=== PATIENT | female | born 1955 | race Caucasian/White ===

== ENCOUNTER → 2018-06-12 | Outpatient (CLI) | payer OTHER ==
[~2018-06-12] MED LIST: ALENDRONATE SOD70 MG PO; ASPIRIN325 PO; CELEXA20 MG PO; CELEXA40 MG; FLEXERIL PO; HYDROCODON-ACE1 EAC7 PO; HYDROCODONE-AP1 EAC6 PO; HYDROXYZINE HCL25 M2 PO; IBUPROFEN 600600 M1 PO; MEDROLDOSEPACK PO; NORCO 5-325 TA1 EACH PO; OXYCODONE HCL 55 MG PO; PRILOSEC40 MG PO; SYNTHROID100 MC1 PO; TIROSINT88 MCG; TRIAMCINOLONE A80 G2 TOP; VITAMIN D 5050000 I1; VITAMIN D2000 UNIT PO
== END ==
LOC: M.MRI 13:59
DX: S43.402A Unspecified sprain of left shoulder joint, initial encounter (principal); M75.122 Complete rotator cuff tear or rupture of left shoulder, not specified as traumatic; M19.012 Primary osteoarthritis, left shoulder; M75.02 Adhesive capsulitis of left shoulder; R60.0 Localized edema; X58.XXXA Exposure to other specified factors, initial encounter; Y93.89 Activity, other specified; Y92.89 Other specified places as the place of occurrence of the external cause; Y99.8 Other external cause status

== ENCOUNTER 2018-07-04 14:56 | Emergency (ER) | payer OTHER ==
[~2018-07-04] VITALS: Ht 162.6 cm; Wt 56.7 kg
[~2018-07-04 14:56] MED LIST changes: -ASPIRIN325 PO; -HYDROCODON-ACE1 EAC7 PO; -HYDROXYZINE HCL25 M2 PO; -MEDROLDOSEPACK PO; -OXYCODONE HCL 55 MG PO; -SYNTHROID100 MC1 PO; -TRIAMCINOLONE A80 G2 TOP
[2018-07-04] MEDS ORDERED: SYNTHROID100 MC1 PO (15:08)
[2018-07-04] MEDS ORDERED: HYDROXYZINE HCL25 M2 PO (16:00)
[2018-07-04] MEDS ORDERED: TRIAMCINOLONE A80 G2 TOP (16:00)
[2018-07-04] MEDS ORDERED: MEDROLDOSEPACK PO (16:00)
[2018-07-04 16:09] VITALS: BP 105/76
[2018-07-06] MEDS ORDERED: HYDROCODON-ACE1 EAC7 PO (12:45)
[2018-07-06] MEDS ORDERED: OXYCODONE HCL 55 MG PO (12:46)
[2018-07-06] MEDS ORDERED: ASPIRIN325 PO (12:53)
== END 2018-07-04 16:10 | disposition home or self-care (01) ==
LOC: M.ERS 14:56
DX: L23.7 Allergic contact dermatitis due to plants, except food (principal); F41.9 Anxiety disorder, unspecified

== ENCOUNTER → 2018-07-06 | Day surgery (SDC) | payer OTHER ==
[~2018-07-06] MED LIST changes: +ASPIRIN325 PO; +HYDROCODON-ACE1 EAC7 PO; +HYDROXYZINE HCL25 M2 PO; +MEDROLDOSEPACK PO; +OXYCODONE HCL 55 MG PO; +SYNTHROID100 MC1 PO; +TRIAMCINOLONE A80 G2 TOP
[2018-07-06 09:31] LABS: HEMATOCRIT 44.7 % (37.0-47.0); HEMOGLOBIN 14.4 gm/dL (12.0-15.0); MCH 28.5 pg (26.0-34.0); MCHC 32.2 g/dL (28.0-37.0); MCV 88.4 fL (80.0-100.0); MPV 8.3 fl. (7.2-11.1); RBC 5.06 mil/uL (4.20-5.00); RDW-CV 15.2 % (10.5-14.5); WBC 18.8 thou/uL (4.0-11.0)
[2018-07-06 09:36] LABS: CREATININE 0.9 mg/dL (0.6-1.3); POTASSIUM 3.4 mmol/L (3.5-5.1)
[2018-07-06 09:41] LABS: ALBUMIN 3.3 g/dL (3.4-5.0); TOTAL BILIRUBIN 0.3 mg/dL (<0.1-1.0); TOTAL PROTEIN 6.8 g/dL (6.4-8.2)
--- NOTE | 2018-07-06 13:12 | EKG ---
[place] [address] ELECTROCARDIOGRAM REPORT Name: MELI PAREKH Room: [facility]#: [id number] Admission: 07/06/18 Attend Phys: Tapan Damon DO Discharge: Date of : 59 Report #: [id number] THIS REPORT FOR: //name// [facility] Test Date: 2018-07-06 Test Time: 09:24:43 Pat Name: MELI PAREKH Department: Room: Gender: F Inspector Aligning: ESME : 1955 Requested By: Tapan Damon Order Number: [id number] Krystal MD: Tapan Zimmerman Measurements Intervals [place] Rate: 77 P: 67 IA: 105 QRS: 56 QRSD: 89 T: 41 QT: 410 QTc: 465 Interpretive Statements Sinus rhythm Short IA interval Compared to ECG 05/20/2017 21:46:45 No significant changes Electronically Signed On 07-06-2018 13:12:03 CDT by Tapan Zimmerman [email or web address] <ELECTRONICALLY SIGNED> By: Tapan Zimmerman MD, [facility] 07/06/18 1312 D: 09/923 3 Tapan Zimmerman MD, FACC /EPI
--- NOTE | 2018-07-24 15:25 | OP ---
[address] [address] OPERATIVE REPORT Name: MELI PAREKH Room: [facility]#: [id number] Admission: 07/06/18 Attend Phys: Tapan Damon DO Discharge: Date of : 59 Report #: [id number] THIS REPORT FOR: //name// CC: Ebenezer Damon DATE OF SERVICE: 07/06/2018 PREOPERATIVE DIAGNOSES: Degenerative labral tear of the left shoulder with adhesive capsulitis. POSTOPERATIVE DIAGNOSES: 1. Left shoulder adhesive capsulitis. 2. Impingement syndrome. 3. Degenerative labral tear. PROCEDURE: 1. Left shoulder arthroscopy. 2. Biceps tenotomy. 3. Debridement of labral tear. 4. Subacromial decompression. SURGEON: Tapan Damon DO. SUPERVISOR PROCESS TESTING: Haja Pimentel DO. ESTIMATED BLOOD LOSS: 10 mL. ANTIBIOTICS: Ancef 2 grams IV preoperatively. COMPLICATIONS: None. DRAINS: None. SPECIMEN REMOVED: None. ANESTHESIA: General with interscalene block. CONDITION OF PATIENT: Stable to PACU. INDICATIONS: The patient is a pleasant 63-year-old female seen in my clinic regarding left shoulder pain that she has had for quite some time. She unfortunately failed conservative treatment including anti-inflammatory medications and activity modification. MRI was obtained demonstrating adhesive capsulitis as well as degenerative-type labral tear. Based on failed conservative treatment, I have recommended left shoulder arthroscopies with [place] [address] [address] OPERATIVE REPORT Name: MELI PAREKH Room: [facility].#: [id number] Admission: 07/06/18 Attend Phys: Tapan Damon DO Discharge: Date of : 59 Report #: [id number] subacromial decompression, debridement of labral tear, possible biceps tenotomy. I discussed procedure, risks, benefits, complications, indications in detail with her. Risks discussed include but not limited to infection, neurovascular injury, continued worsening pain, need for further surgery, DVT, PE and anesthesia complications. She did express understanding and wished to proceed with surgery. DESCRIPTION OF PROCEDURE: After consent was obtained, the patient was taken to the operative suite and placed in the supine position on the operating room table. She was given benefit of general anesthesia, she was then placed in beachchair position, all bony prominences were well padded. Left upper extremity was sterilely prepped and draped in usual fashion. Preop timeout was obtained to confirm the correct patient, procedure and operative site. Surgery began with standard posterolateral portal incision and arthroscope was introduced in the posterolateral portal. Diagnostic arthroscopy was performed noting the above findings. She did have moderate amount of fraying of the anterior labrum consistent with degenerative type tear. She also had some inflammation of the biceps insertion. At this time, an anterior portal was established using spinal needle technique. The labrum was probed, was overall stable, although she did have degenerative aspect here too. At this time, biceps tenotomy was performed with the scissors. The stump was debrided with a wand. The anterior labral degenerative tear was also debrided with the shaver and the wand at this time, taking it back to stable edges. The undersurface of the rotator cuff was inspected. She has very small partial thickness fraying of the undersurface of the rotator cuff. I did go ahead and tagged this with a 2-0 Prolene. The remainder of the cuff was intact. We then went subacromially with the camera. A lateral portal was established. She had a moderate amount of bursal tissue, which was quite adhered to the rotator cuff. It has been a fair amount of time performing subacromial decompression as well as removing this tissue to get to good healthy tendon below. The AC joint was then inspected and debrided as well. After subacromial decompression was performed, we then localized our previous suture. The cuff was intact in this area. There was no obvious bursal-sided tear seen with thorough evaluation. After all therapies were performed, the shoulder was thoroughly irrigated with sterile saline. Fluid was drained. Instruments were removed. Incisions were closed with 4-0 nylon in simple interrupted fashion. Sterile dressing was applied in the form of Xeroform, 4 x 4s, ABD pad, and Medipore tape. She tolerated the procedure well without complications. She was taken to recovery room in stable condition. All needle and sponge counts were correct x 2 at the end of the procedure. <ELECTRONICALLY SIGNED> By: Jairo Sharp DO 07/24/18 1525 [id number] Damon DO /joey
== END | disposition home or self-care (01) ==
LOC: M.SUR 09:07
PROVIDERS: Orthopaedic Surgery
DX: M75.02 Adhesive capsulitis of left shoulder (principal); M24.112 Other articular cartilage disorders, left shoulder; M75.42 Impingement syndrome of left shoulder; E07.9 Disorder of thyroid, unspecified; M81.0 Age-related osteoporosis without current pathological fracture; Z79.82 Long term (current) use of aspirin; Z79.899 Other long term (current) drug therapy; Z79.891 Long term (current) use of opiate analgesic; Z98.890 Other specified postprocedural states